=== PATIENT | female | born 1940 ===

== ENCOUNTER 2018-02-14 03:31 | Emergency (ER) | payer MEDICARE ==
[2018-02-14 03:33] VITALS: BMI 27.3
[2018-02-14 04:39] LABS: BASO % 0.7 % (0.0-2.0); EOS # 0.1 K/uL (0.0-0.7); EOS % 1.3 % (0.0-4.0); HEMOGLOBIN 11.7 g/dL (12.0-16.0); LYMPH # 1.8 K/uL (1.0-4.3); LYMPH % 26.9 % (20.0-40.0); MEAN CELL VOLUME 82.2 fl (81.0-99.0); MEAN CORPUSCULAR HEMOGLOBIN 27.9 pg (27.0-31.0); MEAN CORPUSCULAR HGB CONC 33.9 g/dL (33.0-37.0); MEAN PLATELET VOLUME 8.2 fl (7.2-11.7); MONO % 14.9 % (0.0-10.0); NEUT # 3.7 K/uL (1.8-7.0); NEUT % 56.2 % (50.0-75.0); RBC 4.2 Mil/uL (3.80-5.20); WHITE BLOOD COUNT 6.5 K/uL (4.8-10.8)
[2018-02-14 04:48] LABS: BLOOD UREA NITROGEN 16 mg/dl (7-17); CALCIUM 9.4 mg/dL (8.4-10.2); GFR AFRICAN-AMERICAN > 60; GFR NON-AFRICAN AMERICAN 54
--- NOTE | 2018-02-14 05:13 | ED PDOC ---
HPI: General Adult Time Seen by Provider: 02/14/18 03:42 Chief Complaint (Nursing): Medical Clearance Chief Complaint (Provider): Neck Pain History Per: Patient History/Exam Limitations: no limitations Onset/Duration Of Symptoms: Days (x 1) Current Symptoms Are (Timing): Still Present Additional Complaint(s): 77 year old female brought to the ED via EMS presents with posterior neck pain that began this afternoon. Patient reports she went to lay down on her couch and once reclined on a pillow, felt pain. She did not take any medications for pain [employer]. Patient states that she went to the store and when describing the pain someone told her she should be checked out by a doctor. Denies headache, chest pain and fever. PMD: Dr. Teresita Daniels MD Past Medical History Reviewed: Historical Data, Nursing Documentation, Vital Signs Vital Signs: Last Vital Signs Temp 98.5 F 02/14/18 06:39 Pulse 86 02/14/18 06:39 Resp 16 02/14/18 06:39 BP 152/86 H 02/14/18 06:39 Pulse Ox 98 02/14/18 06:39 - Medical History PMH: Anemia, Anxiety, Arthritis (gouty arthritis), CAD, HTN, Osteoporosis, Chronic Kidney Disease, Rheumatoid Arthritis Denies: HIV, Seizures, Sexually Transmitted Disease - Surgical History Surgical History: Coronary Stent (x1) Other surgeries: coronary artery stents, renal and liver transplants - Family History Family History: States: Unknown Family Hx - Immunization History Hx Tetanus Toxoid Vaccination: No Hx Influenza Vaccination: No Hx Pneumococcal Vaccination: No - Home Medications Home Medications: Ambulatory Orders Medication Instructions Recorded amLODIPine [Norvasc] 10 mg PO DAILY #30 tab 03/28/15 Zolpidem [Ambien] 10 mg PO HS 10/19/15 Tacrolimus [Prograf Cap] 0.5 mg PO BID 08/19/16 Labetalol [Trandate] 100 mg PO BID tab 02/28/17 Tramadol HCl/Acetaminophen 1 each PO Q12 07/18/17 [Ultracet Tablet] Clonazepam [Klonopin] 0.5 mg PO BID 02/14/18 Clonidine HCl [Catapres] 0.1 mg PO BID 02/14/18 Diazepam [Valium] 2 mg PO DAILY 3 Days #3 tablet 02/14/18 Naproxen [Naprosyn] 500 mg PO BID 5 Days #10 tablet 02/14/18 - Allergies Allergies/Adverse Reactions: Allergies Allergy/AdvReac Type Severity Reaction Status Date / Time iodine Allergy Verified 11/11/17 08:36 Penicillins Allergy Verified 11/11/17 08:36 Sulfa (Sulfonamide Allergy Verified 11/11/17 08:36 Antibiotics) prednisone AdvReac Severe Verified 11/11/17 08:36 CT scan IV dye Allergy Uncoded 11/11/17 08:36 seafood Allergy Uncoded 02/27/17 03:17 Review of Systems ROS Statement: Except As Marked, All Systems Reviewed And Found Negative Musculoskeletal: Positive for: Neck Pain Physical Exam - Reviewed Nursing Documentation Reviewed: Yes Vital Signs Reviewed: Yes - Physical Exam Appears: Positive for: Non-toxic, No Acute Distress Head Exam: Positive for: ATRAUMATIC Skin: Positive for: Normal Color, Warm, Dry Eye Exam: Positive for: Normal appearance, EOMI Neck: Positive for: Normal, Painless ROM, Supple (tenderness in palpation paraspinally ) Cardiovascular/Chest: Positive for: Regular Rate, Rhythm. Negative for: Murmur Respiratory: Positive for: Normal Breath Sounds. Negative for: Respiratory Distress Gastrointestinal/Abdominal: Positive for: Normal Exam, Soft Extremity: Positive for: Normal ROM. Negative for: Deformity Neurologic/Psych: Positive for: Alert, Gait (steady) - Laboratory Results Result Diagrams: 02/14/18 04:32 02/14/18 04:32 - ECG ECG: Positive for: Interpreted By Me, Viewed By Me ECG Rhythm: Positive for: Normal QRS, Normal ST Segment, Sinus Rhythm Rate: 69 O2 Sat by Pulse Oximetry: 95 (RA) Pulse Ox Interpretation: Normal - Progress Re-evaluation Time: 06:07 Condition: Re-examined, Improved Medical Decision Making Medical Decision Making: Time; 04:17 Impression: neck pain Differential diagnoses include but are not limited to : muscle spasm, musculoskeletal pain, tension headache less likely ACS Initial Plan: --EKG --BMP --Troponin I --CBC --Flexeril 10 mg PO --Motrin 400 mg PO --Toradol 15 mg IVP Scribe Attestation: Documented by Elina Rojas, acting as a scribe for Glo Robbins MD Provider Scribe Attestation: All medical record entries made by the Scribe were at my direction and personally dictated by me. I have reviewed the chart and agree that the record accurately reflects my personal performance of the history, physical exam, medical decision making, and the department course for this patient. I have also personally directed, reviewed, and agree with the discharge instructions and disposition. Disposition - Clinical Impression Clinical Impression: Neck pain - Patient ED Disposition Is Patient to be Admitted: No Doctor Will See Patient In The: Office Counseled Patient/Family Regarding: Studies Performed, Diagnosis, Need For Followup - Disposition Referrals: Teddy Thurston MD [Primary Care Provider] - Disposition: Routine/Home Disposition Time: 06:07 Condition: GOOD Additional Instructions: Take tylenol or motrin for pain. Follow up with your PCP in 2-3 days. Instructions: Neck Pain
[2018-02-14 06:41] VITALS: BP 152/86; RESP 16; TEMP 98.5
--- NOTE | 2018-02-14 19:20 | CARD ---
APPROVED REPORT EKG Measurement Heart [id number] <Conclusion> Normal sinus rhythm Normal ECG
[2018-02-15 11:43] VITALS: PULSE 69; O2SAT 95
== END 2018-02-14 06:39 | disposition home or self-care (01) ==
LOC: H.ER 03:31
DX: M54.2 Cervicalgia (principal); F41.9 Anxiety disorder, unspecified; I12.9 Hypertensive chronic kidney disease with stage 1 through stage 4 chronic kidney disease, or unspecified chronic kidney disease; Z95.5 Presence of coronary angioplasty implant and graft